=== PATIENT | female | born 1960 | race Caucasian/White ===

== ENCOUNTER → 2017-03-08 | Outpatient (CLI) | payer BC ==
[~2017-03-08] MED LIST: CALCIUM600 MG PO; CLIMARA 0.1 PATCH.W1 TD; DYAZIDE 25 MG-31 CAP PO; ESTRADIOL TOP; FIBER0.52 GM PO; FISH OIL500 MG PO; GLUCOSAMINE CHO1 CAP PO; NORCO 325 MG-51 TAB PO; VALIUM 5MG T5 MG/TAB PO
== END ==
LOC: MC.RAD 14:41
DX: Z12.31 Encounter for screening mammogram for malignant neoplasm of breast (principal); Z98.890 Other specified postprocedural states

== ENCOUNTER → 2017-05-08 | Outpatient (CLI) | payer BC | LOC: COL.RAD 11:15 | DX: E04.1 Nontoxic single thyroid nodule (principal) ==

== ENCOUNTER → 2018-03-28 | Outpatient (CLI) | payer BC | LOC: MC.RAD 07:36 | DX: Z12.31 Encounter for screening mammogram for malignant neoplasm of breast (principal) ==

== ENCOUNTER → 2019-04-02 | Outpatient (CLI) | payer BC | LOC: MC.RAD 06:57 | DX: Z12.31 Encounter for screening mammogram for malignant neoplasm of breast (principal); Z98.890 Other specified postprocedural states; Z87.2 Personal history of diseases of the skin and subcutaneous tissue ==

== ENCOUNTER 2019-08-03 14:13 | Emergency (ER) | payer BC ==
[~2019-08-03] VITALS: Ht 162.6 cm; Wt 65.9 kg
[2019-08-03 14:21] VITALS: TEMP 98.6
[2019-08-03] MEDS ORDERED: GLUCOSAMINE 1000 PO (14:59)
[2019-08-03 15:00] LABS: BASO # 0.1 (0.0-0.2); BASO % 0.5 % (0.0-2.0); EOS # 0.1 (0.0-0.7); EOS % 0.4 % (0-4.0); GRAN # 9.9 (1.4-6.5); GRAN % 83.4 % (42.2-75.2); HEMATOCRIT 43.8 % (37.0-47.0); HEMOGLOBIN 14.7 g/dl (12.5-16.0); LYMPH % 8.1 % (20.0-51.0); MEAN CELL VOLUME 92 fl (80.0-100.0); MEAN CORPUSCULAR HEMOGLOBIN 31 pg (27.0-31.0); MEAN CORPUSCULAR HGB CONC 34 g/dl (33.0-37.0); MEAN PLATELET VOLUME 10.2 fl (7.4-10.4); MONO # 0.8 (0.1-0.6); MONO % 7.1 % (1.7-9.3); PLATELET COUNT 298 K/mm3 (130-400); RED BLOOD COUNT 4.78 M/mm3 (4.10-5.30); REDCELL DISTRIBUTION WIDTH-CV 12.4 % (11.5-14.5)
[2019-08-03] MEDS ORDERED: GLUCOSAMINE CHO1 TAB PO (15:01)
[2019-08-03] MEDS ORDERED: ALDACTAZIDE 251 TAB PO (15:04)
[2019-08-03 15:11] LABS: PROTHROMBIN TIME 11.1 SECONDS (9.7-12.8)
[2019-08-03 15:14] LABS: ALANINE AMINOTRANSFERASE 165 U/L (9-52); ALBUMIN 4.4 gm/dL (3.5-5.0); ALKALINE PHOSPHATASE 87 U/L (50-136); ANION GAP 9 mmol/L (7-16); AST,SGOT 267 U/L (15-37); BLOOD UREA NITROGEN 21 mg/dL (7-17); CALCIUM 10.4 mg/dL (8.4-10.2); CARBON DIOXIDE 29 mmol/L (22-30); CHLORIDE 101 mmol/L (98-107); CREATINE KINASE 61 U/L (30-135); CREATININE, serum 0.79 (0.52-1.25); GLUCOSE 97 mg/dL (74-106); LIPASE 221 U/L (23-300); POTASSIUM 3.6 mmol/L (3.4-5.0); SODIUM 138 mmol/L (137-145); TOTAL PROTEIN 8.1 gm/dL (6.4-8.2)
[2019-08-03 15:26] LABS: TROPONIN-I < 0.012 ng/mL (0.000-0.035)
[2019-08-03] MEDS ORDERED: NORCO 325 MG-51 TAB PO (17:39)
[2019-08-03] MEDS ORDERED: PROTONIX 40MG T40 MG PO (17:39)
[2019-08-03 18:15] VITALS: BP 133/82; PULSE 63
== END 2019-08-03 18:00 | disposition home or self-care (01) ==
LOC: COL.ER 14:13
PROVIDERS: Emergency Medicine
DX: K27.9 Peptic ulcer, site unspecified, unspecified as acute or chronic, without hemorrhage or perforation (principal); Z90.710 Acquired absence of both cervix and uterus
CPT/HCPCS: C9113; J1170; J3010; J7030; Q9967

== ENCOUNTER 2019-08-07 14:08 | Day surgery (SDC) | payer BC ==
[~2019-08-07] VITALS: Ht 162.6 cm; Wt 64.5 kg
[~2019-08-07 14:08] MED LIST changes: +ALDACTAZIDE 251 TAB PO; +GLUCOSAMINE 1000 PO; +GLUCOSAMINE CHO1 TAB PO; +PROTONIX 40MG T40 MG PO
[2019-08-07 15:01] VITALS: BP 118/74; PULSE 65; TEMP 98.9
[2019-08-07 15:35] VITALS: BP 135/76; PULSE 80; TEMP 98.6
[2019-08-07 15:50] VITALS: BP 117/80; PULSE 78
[2019-08-07 16:05] VITALS: BP 122/85; PULSE 66
--- NOTE | 2019-08-07 16:18 | NUR ---
Pt returned via cart to [facility]. Assisted to recliner in bay. Pt drowsy but oriented. Spouse in room. VSS-see flowsheet. Tolerated juice and apple sauce. Dr Spence was in to visit post procedure. Discharge teaching completed, pt and spouse verbalized understanding. IV removed, pressure dressing applied. Pt dressed for dc and taken via wheelchair to private vehicle for dc home with driving.
[2019-08-07 18:14] VITALS: BP 121/73; PULSE 79
== END 2019-08-07 16:23 | disposition home or self-care (01) ==
LOC: SDCO 14:08
DX: K29.80 Duodenitis without bleeding (principal); K44.9 Diaphragmatic hernia without obstruction or gangrene; R93.3 Abnormal findings on diagnostic imaging of other parts of digestive tract; D13.1 Benign neoplasm of stomach; K27.9 Peptic ulcer, site unspecified, unspecified as acute or chronic, without hemorrhage or perforation
CPT/HCPCS: J2250; J3010; J7030

== ENCOUNTER → 2020-04-03 | Outpatient (CLI) | payer BC | LOC: MC.RAD 06:52 | DX: Z12.31 Encounter for screening mammogram for malignant neoplasm of breast (principal) ==

== ENCOUNTER → 2021-04-06 | Outpatient (CLI) | payer BC | LOC: MC.RAD 07:14 | DX: Z12.31 Encounter for screening mammogram for malignant neoplasm of breast (principal) ==

== ENCOUNTER → 2022-04-07 | Outpatient (CLI) | payer BC, OTHER | LOC: MC.RAD 06:57 | DX: Z12.31 Encounter for screening mammogram for malignant neoplasm of breast (principal) ==

== ENCOUNTER → 2023-06-14 | Outpatient (CLI) | payer BC, OTHER | LOC: CANSCHCLI → MC.RAD 06:57 | DX: Z12.31 Encounter for screening mammogram for malignant neoplasm of breast (principal) ==

== ENCOUNTER → 2024-06-17 | Outpatient (CLI) | payer BC, OTHER | LOC: MC.RAD 06:55 | DX: Z12.31 Encounter for screening mammogram for malignant neoplasm of breast (principal) ==